=== PATIENT | female | born 1975 | race American Indian/Alaskan Native ===

== ENCOUNTER 2021-07-27 11:21 | Emergency (ER) | payer BC, MEDICAID, OTHER | END 2021-07-27 13:15 | disposition left against medical advice (07) | LOC: JP.ED 11:21 | DX: Z53.21 Procedure and treatment not carried out due to patient leaving prior to being seen by health care provider (principal) ==

== ENCOUNTER 2021-08-25 11:37 | Emergency (ER) | payer MEDICAID ==
[2021-08-25 11:57] VITALS: BP 144/91; PULSE 95
--- NOTE | 2021-08-25 12:16 | EDM.PDOC ---
ED HPI GENERAL MEDICAL PROBLEM - General Chief Complaint: Back Pain or Injury Stated Complaint: BACK PAIN Time Seen by Provider: 08/25/21 12:00 Source of Information: Reports: Patient, EMS History Limitations: Reports: No Limitations - History of Present Illness INITIAL COMMENTS - FREE TEXT/NARRATIVE: 46-year-old female with a prior history of pancreatitis, kidney stones, was s tanding in the kitchen when she developed a very intense mid back pain, right upper quadrant pain, that radiated up her back into her right shoulder. It hurts so bad she had to lay down and then she called the ambulance. No fevers or chills, no nausea or vomiting. She did receive some fentanyl in route. She is feeling better, no abdominal distention, bloating, or urinary complaints. Onset: Sudden Duration: Hour(s): (Sudden onset 2 hours ago) Location: Reports: Abdomen (As above), Back Improves with: Reports: Other (Pain medication on transport seem to help quite a bit) Associated Symptoms: Reports: Malaise. 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: Endocrine/Metabolic History: Reports: Diabetes, Type II - Infectious Disease History Infectious Disease History: Reports: Chicken Pox - Past Surgical History GI Surgical History: Reports: Appendectomy Female Surgical History: Reports: Section Social & Family History - Tobacco Use Tobacco Use Status *Q: Current Every Day Tobacco User Years of Tobacco use: 5 Packs/Tins Daily: 1 - Caffeine Use Caffeine Use: Reports: Soda - Recreational Drug Use Recreational Drug Use: Yes Drug Use in Last 12 Months: Yes Recreational Drug Type: Reports: Marijuana/Hashish Recreational Drug Use Frequency: Daily ED ROS GENERAL - Review of Systems Review Of Systems: See Below Constitutional: Reports: Malaise. Denies: Fever, Chills HEENT: Denies: Throat Pain Respiratory: Denies: Shortness of Breath, Cough Cardiovascular: Denies: Chest Pain GI/Abdominal: Reports: Abdominal Pain. Denies: Vomiting : Reports: Flank Pain (Right-sided back pain). Denies: Dysuria, Frequency, Urgency Musculoskeletal: Reports: Back Pain Skin: Reports: No Symptoms Neurological: Reports: No Symptoms Psychiatric: Reports: Anxiety ED EXAM, GENERAL - Physical Exam Exam: See Below Exam Limited By: No Limitations General Appearance: Alert, No Apparent Distress (Looks comfortable at this time) Eye Exam: Bilateral Eye: Normal Inspection (No jaundice, normal hydration) Head: Atraumatic Neck: Supple, Non-Tender Respiratory/Chest: Lungs Clear Cardiovascular: Regular Rate, Rhythm. No: Tachycardia GI/Abdominal: Soft, Non-Tender Extremities: Normal Inspection Neurological: Alert, Oriented Psychiatric: Normal Affect, Normal Mood Skin Exam: Warm, Dry Course - Vital Signs Last Recorded V/S: Last Vital Signs Temp 97.6 F 08/25/21 12:07 Pulse 95 08/25/21 12:07 Resp 16 08/25/21 12:07 BP 144/91 H 08/25/21 12:07 Pulse Ox 97 08/25/21 12:07 - Orders/Labs/Meds Labs: Laboratory Tests 08/25/21 08/25/21 Range/Units 12:14 12:14 WBC 11.9 H (4.5-11.0) K/uL RBC 5.09 (3.30-5.50) M/uL Hgb 13.9 (12.0-15.0) g/dL Hct 42.2 (36.0-48.0) % MCV 83 (80-98) fL MCH 27 (27-31) pg MCHC 33 (32-36) % Plt Count 316 (150-400) K/uL Neut % (Auto) 56.2 (36-66) % Lymph % (Auto) 31.9 (24-44) % Cooper % (Auto) 8.3 H (2-6) % Eos % (Auto) 3.1 (2-4) % Baso % (Auto) 0.5 (0-1) % Sodium 139 L (140-148) mmol/L Potassium 4.1 (3.6-5.2) mmol/L Chloride 104 (100-108) mmol/L Carbon Dioxide 26 (21-32) mmol/L Anion Gap 13.1 (5.0-14.0) mmol/L BUN 12 (7-18) mg/dL Creatinine 0.7 (0.6-1.0) mg/dL Est Cr Clr Drug Dosing 81.11 mL/min Estimated GFR (MDRD) > 60 (>60) Glucose 122 H (74-106) mg/dL Calcium 8.8 (8.5-10.1) mg/dL Total Bilirubin 0.3 (0.2-1.0) mg/dL AST 14 L (15-37) U/L ALT 25 (12-78) U/L Alkaline Phosphatase 73 (46-116) U/L Total Protein 7.0 (6.4-8.2) g/dL Albumin 3.5 (3.4-5.0) g/dL Globulin 3.5 (2.3-3.5) g/dL Albumin/Globulin Ratio 1.0 L (1.2-2.2) Lipase 199 (73-393) U/L Meds: Medications Discontinued Medications Generic Name Dose Route Start Last Admin Trade Name Freq PRN Reason Stop Dose Admin Ketorolac Tromethamine 30 mg 08/25/21 13:14 08/25/21 13:23 Ketorolac 30 Mg/Ml Sdv IVPUSH 08/25/21 13:15 30 mg ONETIME ONE Administration - Re-Assessments/Exams Free Text/Narrative Re-Assessment/Exam: 08/25/21 12:15 CBC, CMP and lipase were obtained. CT the abdomen and pelvis to rule out nephrolithiasis. 08/25/21 13:53 White count returned just minimally elevated, and the rest of her labs were reassuring including normal LFTs and lipase. She also had normal kidney function. 30 mg of IV Toradol was then given pending CT report. CT showed a very large stone in the left renal pelvis, a possible nonobstructing stone in the right side. Patient was still uncomfortable but improved. Copies of the CT report and labs were done and the patient will recheck with Danna Steinberg at [facility] to discuss possible urology referral Departure - Departure Time of Disposition: 14:11 Disposition: Home, Self-Care 01 Clinical Impression: Right flank pain, Nephrolithiasis - Discharge Information Instructions: Kidney Stones Referrals: PCP,None [Primary Care Provider] - Forms: ED Department Discharge Care Plan Goals: A recurring dose of ibuprofen or naproxen should be helpful for the next couple of days and call the [facility] to make an appointment to see Danna Steinberg to discuss further testing or consultations. Stay hydrated Sepsis Event Note (ED) - Evaluation Sepsis Screening Result: No Definite Risk - Focused Exam Vital Signs: Vital Signs Temp Pulse Resp BP Pulse Ox 08/25/21 12:07 97.6 F 95 16 144/91 H 97 08/25/21 11:48 97.6 F 95 16 144/91 H 97
[2021-08-25] MEDS ORDERED: Ketorolac 30 MG/ML SDV IVPUSH ONE (13:14)
--- NOTE | 2021-08-25 13:41 | CT ---
Abdomen Pelvis wo Cont CLINICAL HISTORY: Right flank pain COMPARISON: None. TECHNIQUE: Axial tomographic images are obtained from the dome of the diaphragm to the pubic symphysis without IV contrast enhancement. No oral contrast was used. The dosage reduction and iterative reconstruction techniques employed. FINDINGS: The lung bases are clear. The liver is enlarged at over 17 cm in length.. The gallbladder has a normal appearance. The spleen has a normal size and shape. The pancreas shows no mass or inflammatory change. The adrenal glands appear normal bilaterally. There is hydronephrosis of the left there is dilatation of the extrarenal pelvis. There is a 2.2 x 1.7 cm stone in the extrarenal pelvis. There is some inflammatory change in the urothelium of the renal pelvis. The aorta has a normal contour. The left ureter has normal course and contour. There is no right hydronephrosis or hydroureter. There are some tiny calcifications near the mid right ureter some of these are felt to be extra urinary. A nonobstructing mid ureteral calculus is not excluded. Bladder has a normal contour. The right ovary is prominent at 3.1 x 2.8 x 3.4 cm. There is no suspicious retroperitoneal adenopathy. The small intestinal configuration is nonacute. There is gas and feces throughout the colon. The appendix has been removed. IMPRESSION: Large stone in the left renal pelvis with hydronephrosis. The ureter has a normal course and caliber. There may be some urothelial inflammatory changes at the UPJ. Punctate calcification in the region of the mid right ureter may represent a nonobstructing ureteral calculus Prominent right ovary
== END 2021-08-25 14:11 | disposition home or self-care (01) ==
LOC: JP.ED 11:37
DX: N13.2 Hydronephrosis with renal and ureteral calculous obstruction (principal); E11.9 Type 2 diabetes mellitus without complications; Z79.84 Long term (current) use of oral hypoglycemic drugs; Z79.899 Other long term (current) drug therapy; Z88.0 Allergy status to penicillin; Z72.0 Tobacco use
CPT/HCPCS: 36415; 74176; 80053; 83690; 85025; 96374; 99284; J1885

== ENCOUNTER 2024-09-09 17:52 | Emergency (ER) | payer SELFPAY ==
[2024-09-09] MEDS: fentaNYL 100 MCG/2 ML SDV IVPUSH ONE (18:22)
[2024-09-09] MEDS: Ondansetron 4 MG/2 ML SDV IVPUSH ONE (18:22)
[2024-09-09 18:24] LABS: BASOPHILS ABSOLUTE AUTO 0.07 K/uL (0.00-0.10); BASOPHILS PERCENT AUTO 0.6 % (0.1-1.3); EOSINOPHILS PERCENT AUTO 1.7 % (0.0-5.4); HEMATOCRIT 38.2 % (34.3-46.0); HEMOGLOBIN 12.7 g/dL (11.2-15.5); IMMATURE GRAN ABSOLUTE AUTO 0.04 K/uL (0.00-0.23); IMMATURE GRAN PERCENT AUTO 0.3 % (0.0-0.7); LYMPHOCYTES ABSOLUTE AUTO 3.52 K/uL (0.8-3.3); LYMPHOCYTES PERCENT AUTO 30.6 % (11.4-47.7); MEAN CORPUSCULAR HEMOGLOBIN 28.5 pg (31.6-35.5); MEAN CORPUSCULAR HGB CONC 33.2 g/dL (31.6-35.5); MEAN CORPUSCULAR VOLUME 85.7 fL (81.4-99.0); MONOCYTES ABSOLUTE AUTO 0.89 K/uL (0.20-0.90); MONOCYTES PERCENT AUTO 7.7 % (3.3-12.6); NEUTROPHILS ABSOLUTE AUTO 6.79 K/uL (1.0-7.6); NEUTROPHILS PERCENT AUTO 59.1 % (40.0-78.1); PLATELET COUNT,PLT 285 K/uL (130-375); RED BLOOD CELL COUNT 4.46 M/uL (3.77-5.24); WHITE BLOOD CELL COUNT,WBC 11.5 K/uL (3.2-11.0)
[2024-09-09] MEDS: Sodium Chloride 0.9% 60 ML IV SCH (18:41)
[2024-09-09] MEDS: Iopamidol 612 MG/ML 100 ML Bottle IV SCH (18:41)
[2024-09-09 18:46] LABS: A/G RATIO 0.9 (1.2-2.2); ALANINE AMINOTRANSFERASE,ALT 39 U/L (12-78); ALBUMIN 3.3 g/dL (3.4-5.0); ALKALINE PHOSPHATASE 67 U/L (46-116); ASPARTATE AMNIOTRANSFERASE,AST 20 U/L (15-37); BILIRUBIN TOTAL 0.2 mg/dL (0.2-1.0); BLOOD UREA NITROGEN,BUN 8 mg/dL (7-18); CALCIUM 9.1 mg/dL (8.5-10.1); CARBON DIOXIDE,CO2 29 mmol/L (21-32); CHLORIDE,CL 106 mmol/L (100-108); CREATININE 0.8 mg/dL (0.6-1.0); EST CRCL DRUG DOSING (CG) 68.76 mL/min; ESTIMATED GFR 91 mL/min (>60); GLUCOSE RANDOM 84 mg/dL (74-106); POTASSIUM,K 3.2 mmol/L (3.6-5.2); PROTEIN TOTAL,TP 6.9 g/dL (6.4-8.2); SODIUM,NA 143 mmol/L (140-148)
[2024-09-09 18:47] LABS: ANION GAP 11.2 mmol/L (5.0-14.0)
[2024-09-09 19:55] VITALS: BP 96/61; PULSE 72
[2024-09-09 20:34] LABS: APPEARANCE,URINE CLEAR (CLEAR); BILIRUBIN,URINE NEGATIVE (NEGATIVE); COLOR,URINE YELLOW (YELLOW); GLUCOSE,URINE NEGATIVE (NEGATIVE); KETONES,URINE NEGATIVE (NEGATIVE); LEUKOCYTE ESTERASE,URINE NEGATIVE (NEGATIVE); NITRITE,URINE NEGATIVE (NEGATIVE); OCCULT BLOOD,URINE NEGATIVE (NEGATIVE); PH,URINE 5.5 (5.0-8.0); PROTEIN,URINE NEGATIVE (NEGATIVE); UROBILINOGEN,URINE 0.2 EU/dL (0.2-1.0)
[2024-09-09 20:46] LABS: AMORPHOUS SEDIMENT,URINE NOT SEEN; BACTERIA,URINE RARE; EPITHELIAL CELLS,URINE FEW; MUCUS,URINE RARE; RBC,URINE 0-5 (0-5); WBC,URINE 0-5 (0-5)
[2024-09-09] MEDS: Ketorolac 30 MG/ML SDV IVPUSH ONE (21:12)
== END 2024-09-09 21:40 | disposition home or self-care (01) ==
LOC: JP.ED 17:52
DX: N20.0 Calculus of kidney (principal); E11.9 Type 2 diabetes mellitus without complications; Z90.49 Acquired absence of other specified parts of digestive tract; F17.210 Nicotine dependence, cigarettes, uncomplicated; Z79.82 Long term (current) use of aspirin; Z79.899 Other long term (current) drug therapy; Z91.040 Latex allergy status; Z88.0 Allergy status to penicillin
CPT/HCPCS: 36415; 74177; 80053; 81001; 83605; 83690; 85025; 96374; 96375; 99284; J1885; J2405; J3010; J3490; Q9967